=== PATIENT | male | born 1965 | race African-American/Black ===

== ENCOUNTER 2017-03-19 04:41 | Emergency (ER) | payer BC, SELFPAY ==
[2017-03-19] MEDS ORDERED: Ketorolac Tromethamine 60 MG/2 ML VIAL ONE (04:59)
[2017-03-19] MEDS ORDERED: Ondansetron ODT 8 MG TAB ONE (05:00)
== END 2017-03-19 05:53 | disposition home or self-care (01) ==
LOC: ERS 04:41
DX: J11.1 Influenza due to unidentified influenza virus with other respiratory manifestations (principal)
CPT/HCPCS: 96372; J1885